=== PATIENT | female | born 1970 | race Asian ===

== ENCOUNTER 2023-05-20 08:49 | Outpatient (CLI) | payer OTHER | END 2023-05-20 08:50 | disposition home or self-care (01) | LOC: CSHMAMMO 08:49 | PROVIDERS: ATTEND Internal Medicine | DX: Z12.31 Encounter for screening mammogram for malignant neoplasm of breast (principal) | CPT/HCPCS: 77063; 77067 ==

== ENCOUNTER 2025-06-28 12:16 | Outpatient (CLI) | payer BC | END 2025-06-28 12:17 | disposition home or self-care (01) | LOC: CSHMAMMO 12:16 | PROVIDERS: ATTEND Nurse Practitioner Family | DX: Z12.31 Encounter for screening mammogram for malignant neoplasm of breast (principal); Z13.820 Encounter for screening for osteoporosis | CPT/HCPCS: 77063; 77067 ==